=== PATIENT | male | born 1980 | race Caucasian/White ===

== ENCOUNTER 2019-11-30 13:15 | Emergency (ER) | payer BC, OTHER ==
[~2019-11-30] VITALS: Ht 182.9 cm; Wt 81.2 kg
[2019-11-30 13:18] VITALS: BP 142/93
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
== END 2019-11-30 14:11 | disposition home or self-care (01) ==
LOC: ED 14:10
DX: H93.11 Tinnitus, right ear (principal)
CPT/HCPCS: 99281